=== PATIENT | female | born 1940 | race Caucasian/White ===

== ENCOUNTER → 2016-10-02 | Outpatient (CLI) | payer OTHER | LOC: BRMIMAGING 13:07 | DX: Z12.31 Encounter for screening mammogram for malignant neoplasm of breast (principal) | CPT/HCPCS: G0202 ==

== ENCOUNTER → 2016-12-20 | Outpatient (CLI) | payer OTHER | LOC: BHCLAF 10:45 | PROVIDERS: ATTEND Internal Medicine | DX: I35.0 Nonrheumatic aortic (valve) stenosis (principal) | CPT/HCPCS: 93306-PO ==

== ENCOUNTER 2017-01-13 09:17 | Day surgery (SDC) | payer OTHER ==
[2017-01-13] MEDS ORDERED: DIAZEPAM 5 MG TAB PO ONE (09:22)
[2017-01-13] MEDS ORDERED: ASPIRIN EC 325 MG TAB PO ONE ×2 (09:22→09:41)
[2017-01-13] MEDS ORDERED: NS 1,000 ML IV ONE (09:22)
[2017-01-13] MEDS ORDERED: diphenhydrAMINE 25 MG CAP PO ONE ×2 (09:22→09:41)
[2017-01-13] MEDS ORDERED: FAMOTIDINE 20 MG TAB PO ONE (09:22)
--- NOTE | 2017-01-13 09:39 | CPEKG ---
Heart Rate: 56 RR Interval: 1071 P-R Interval: 124 QRSD Interval: 100 QT Interval: 448 QTC Interval: 433 P [place]: 13 QRS [place]: -20 T Wave [place]: 42 EKG Severity - BORDERLINE ECG - EKG Impression: SINUS RHYTHM EKG Impression: BORDERLINE LEFT AXIS DEVIATION EKG Impression: BORDERLINE T WAVE ABNORMALITIES Electronically Signed By: Kwadwo Cast 13-Jan-2017 17:39:56
[2017-01-13] MEDS ORDERED: FAMOTIDINE 20 MG TAB ONE (09:41)
[2017-01-13] MEDS ORDERED: DIAZEPAM 5 MG TAB ONE (09:42)
[2017-01-13 10:02] LABS: % IMMATURE GRANULYOCYTES 0.2 % (0.0-1.1); ABSOLUTE IMMATURE GRANULOCYTES 0.01 10^3/uL (0.00-0.10); ADD DIFF? NO; ADD MORPH? NO; ADD SCAN? NO; ATYPICAL LYMPHOCYTE FLAG 30 (0-99); FRAGMENT RBC FLAG 0 (0-99); HEMATOCRIT 42.3 % (38.0-47.0); HEMOGLOBIN 14.2 g/dL (12.6-16.3); LEFT SHIFT FLG 0 (0-99); LIPEMIA HEMOLYSIS FLAG 80 (0-99); MEAN CELL HEMOGLOBIN CONCENTR. 33.6 g/dL (32.4-36.7); MEAN CELL VOLUME 92.4 fL (81.5-99.8); MEAN PLATELET VOLUME 10.3 fL (8.7-11.7); PLATELET CLUMPS FLAG 0 (0-99); PLATELET COUNT 179 10^3/uL (150-400); RED BLOOD CELL COUNT 4.58 10^6/uL (4.18-5.33); RED CELL DISTRIBUTION WIDTH 13.8 % (11.5-15.2)
[2017-01-13 10:11] LABS: INR 1.02 (0.83-1.16); PROTIME(PATIENT) 13.3 SEC (12.0-15.0)
[2017-01-13] MEDS ORDERED: fentaNYL 100 MCG/2 ML INJ ONE (10:22)
[2017-01-13] MEDS ORDERED: LIDOCAINE 1% 300 MG/30 ML SDV ONE (10:22)
[2017-01-13] MEDS ORDERED: MIDAZOLAM 2 MG/2 ML VIAL ONE (10:23)
[2017-01-13] MEDS ORDERED: IOPAMIDOL (ISOVUE-370) 150 ML BTL IV ONE ×2 (10:23→11:07)
[2017-01-13 10:26] LABS: ANION GAP 9 mEq/L (8-16); CALCIUM 9.8 mg/dL (8.5-10.4); CARBON DIOXIDE 28 mEq/l (22-31); CHLORIDE 102 mEq/L (97-110); CHOLESTEROL 200 mg/dL (140-220); CHOLESTEROL/HDL RATIO 2.08 RATIO (1.00-4.44); CREATININE 0.8 mg/dL (0.6-1.0); GLOMERULAR FILTRATION RATE > 60; GLUCOSE 81 mg/dL (70-100); HIGH DENSITY LIPOPROTEIN 96 mg/dL (40-85); LDL/HDL RATIO 0.93 RATIO (1.00-3.22); LOW DENSITY LIPOPROTEIN 89 mg/dL (80-100); MAGNESIUM 2.1 mg/dL (1.6-2.3); NON-HIGH DENSITY LIPOPROTEIN 104 mg/dL (90-129); POTASSIUM 4.5 mEq/L (3.5-5.2); SODIUM 139 mEq/L (134-144); TRIGLYCERIDE 79 mg/dL (35-135); VERY LOW DENSITY LIPOPROTEINS 15 mg/dL (8-25)
--- NOTE | 2017-01-13 12:08 | CPIP ---
[f rep st] INVASIVE CARDIAC PROCEDURE DATE OF PROCEDURE: 01/13/2017 PROCEDURE: Coronary angiography. INDICATION: Preoperative evaluation prior to AVR. ACCESS: Patient was prepped and draped in sterile fashion. 1% lidocaine was used to anesthetize th e right inguinal region. A 6-[place] introducer sheath was placed selectively into the right common femoral artery via modified Seldinger technique. CORONARY ANGIOGRAPHY: A 6-[place] JL5 was advanced to the left main coronary artery, and images obta ined. The left main coronary artery trifurcated into an LAD, ramus and circumflex coronary arteries . The left main coronary artery appeared normal. The left anterior descending coronary artery had mild luminal irregularities in the midsection. There was no stenosis greater than 10%. The ramus c oronary artery was a large vessel. The ramus coronary artery appeared normal. The circumflex coron rene artery was codominant. The circumflex coronary artery appeared normal. The first OM artery was a large dominant branch. The first OM artery had mild luminal irregularities approaching 20%. A 6 -[place] Db right catheter was advanced to the right coronary artery, and images obtained. The right coronary artery was codominant. The right coronary artery appeared normal. LEFT VENTRICULOGRAPHY: Left ventriculography was not performed. This patient has known severe aort ic stenosis. COMPLICATIONS: None. CONCLUSIONS: Mild coronary artery disease without flow limitation. /[id number]/MODL
== END 2017-01-13 15:33 | disposition home or self-care (01) ==
LOC: FCATH 09:17
PROVIDERS: ATTEND Internal Medicine Cardiovascular Disease
PROC: B2111ZZ Fluoroscopy of Multiple Coronary Arteries using Low Osmolar Contrast (ICD-10-PCS; principal; 2017-01-13)
DX: Z01.818 Encounter for other preprocedural examination (principal); I35.0 Nonrheumatic aortic (valve) stenosis; I25.10 Atherosclerotic heart disease of native coronary artery without angina pectoris; I47.1 Supraventricular tachycardia; J45.909 Unspecified asthma, uncomplicated; K21.9 Gastro-esophageal reflux disease without esophagitis; Z82.49 Family history of ischemic heart disease and other diseases of the circulatory system
CPT/HCPCS: C1760; J1644; J2250; J3010; Q9967

== ENCOUNTER → 2017-01-16 | Outpatient (CLI) | payer OTHER ==
[~2017-01-16] MED LIST: IOPAMIDOL (ISOVUE 370) 100 ML BTL IV ONE
== END ==
LOC: CIMAGING 11:05
PROVIDERS: ATTEND Internal Medicine Cardiovascular Disease
DX: I71.2 Thoracic aortic aneurysm, without rupture (principal); R00.2 Palpitations; I35.0 Nonrheumatic aortic (valve) stenosis
CPT/HCPCS: 71275; Q9967

== ENCOUNTER → 2017-01-24 | Outpatient (CLI) | payer OTHER | LOC: FIMAGING 12:18 | PROVIDERS: ATTEND Thoracic Surgery (Cardiothoracic Vascular Surgery) | DX: Z01.818 Encounter for other preprocedural examination (principal); I35.0 Nonrheumatic aortic (valve) stenosis; I71.2 Thoracic aortic aneurysm, without rupture ==

== ENCOUNTER → 2017-01-24 | Outpatient (CLI) | payer OTHER | LOC: BHFA 11:30 | PROVIDERS: ATTEND Internal Medicine Cardiovascular Disease | DX: Z01.810 Encounter for preprocedural cardiovascular examination (principal) ==

== ENCOUNTER 2017-01-27 05:49 | Inpatient (IN) | payer OTHER ==
[2017-01-27] MEDS ORDERED: MANNITOL 25% 12.5 GM/50 ML VIAL IV ONE (06:00)
[2017-01-27] MEDS ORDERED: ceFAZolin 2 GM/DEXTROSE 100 ML IV ONE ×2 (06:00)
[2017-01-27] MEDS ORDERED: SODIUM BICARBONATE 20 MEQ, LIDOCAINE 1% 10 ML in NORMOSOL-R 1,000 ML MISC ONE (06:00)
[2017-01-27] MEDS ORDERED: INSULIN REGULAR HUMAN 100 UNIT in NS 100 ML IV ONE (06:00)
[2017-01-27] MEDS ORDERED: NOREPINEPHRINE BITARTRATE 16 MG in NS 250 ML IV ONE (06:00)
[2017-01-27] MEDS ORDERED: LIDOCAINE 1% 5 ML SDV ID PRN ×2 (06:00)
[2017-01-27] MEDS ORDERED: niCARdipine/NACL 200 ML IV ONE (06:00)
[2017-01-27] MEDS ORDERED: AMINOCAPROIC ACID 5 GM/20 ML VIAL IV ONE ×2 (06:00)
[2017-01-27] MEDS ORDERED: PHENYLEPHRINE HCL 50 MG in NS 250 ML IV ONE (06:00)
[2017-01-27] MEDS ORDERED: CITRATE DEXTROSE SOLN 500 ML BAG MISC ONE ×2 (06:00)
[2017-01-27] MEDS ORDERED: LIDOCAINE 1% 2 ML INJ ID PRN (06:23)
[2017-01-27] MEDS ORDERED: LR 1,000 ML IV ONE (06:23)
[2017-01-27] MEDS ORDERED: PROTAMINE SULFATE 50 MG/5 ML VIAL IVP ONE (06:33)
[2017-01-27] MEDS ORDERED: ALBUMIN 5% 250 ML BOTTLE IV ONE ×2 (06:33→10:32)
[2017-01-27] MEDS ORDERED: AMINOCAPROIC ACID 5 GM/20 ML VIAL ONE (06:34)
[2017-01-27] MEDS ORDERED: CITRATE DEXTROSE SOLN 500 ML BAG ONE (06:34)
[2017-01-27] MEDS ORDERED: CALCIUM CHLORIDE 1 GM/10 ML INJ ONE (06:34)
[2017-01-27] MEDS ORDERED: niCARdipine/NACL/200 ML BAG IV ONE (06:34)
[2017-01-27] MEDS ORDERED: NA BICARBONATE 50 MEQ/50 ML VIAL ONE (06:34)
[2017-01-27] MEDS ORDERED: DOPamine/DEXTROSE/250 ML BAG IV ONE (06:34)
[2017-01-27] MEDS ORDERED: LIDOCAINE 2% 100 MG/5 ML SYR ONE (06:34)
[2017-01-27] MEDS ORDERED: MILRINONE/DEXTROSE/100 ML BAG IV ONE (06:34)
[2017-01-27] MEDS ORDERED: POTASSIUM Cl (KCl) 20 MEQ/50 ML BAG IV ONE (06:34)
[2017-01-27] MEDS ORDERED: HEPARIN 10,000 UNIT/10 ML MDV ONE (06:35)
[2017-01-27] MEDS ORDERED: ceFAZolin 1 GM VIAL ONE (06:35)
[2017-01-27] MEDS ORDERED: AMIODARONE HCL 150 MG/3 ML VIAL ONE (06:35)
[2017-01-27] MEDS ORDERED: ADENOSINE 6 MG/2 ML VIAL ONE (06:35)
[2017-01-27] MEDS ORDERED: methylPREDNISolone SOD SUCC 1 GM/8 ML VIAL ONE (06:35)
[2017-01-27] MEDS ORDERED: MAGNESIUM SULFATE 1 GM/2 ML VIAL ONE (06:35)
[2017-01-27] MEDS: MUPIROCIN 2% 22 GM OINT NS SCH ×3 (06:58→21:50)
--- NOTE | 2017-01-27 06:58 | PDHPUP ---
History & Physical Update H&P update statement: This history and physical update is based on an assessment of the patient which was completed after admission or registration (within 24 hours), but prior to the surgery/procedure. H&P changes: Interim testing: Carotid US mild plaquing, no hemodynamically significant stenosis, antegrade vertebral flow. Labwork: Hct 42, Na 139, K 4.5 , Cr 0.8, A1c 5.7%. O+, neg antibody screen
[2017-01-27] MEDS ORDERED: MIDAZOLAM 2 MG/2 ML VIAL ONE (07:02)
[2017-01-27] MEDS ORDERED: MIDAZOLAM 2 MG/2 ML VIAL IVP ONE (07:04)
[2017-01-27] MEDS ORDERED: fentaNYL 100 MCG/2 ML INJ ONE ×4 (07:07)
[2017-01-27] MEDS ORDERED: PROPOFOL 200 MG/20 ML VIAL ONE ×2 (07:07→09:36)
[2017-01-27] MEDS ORDERED: LIDOCAINE 2% 5 ML SDV ONE (07:07)
[2017-01-27] MEDS ORDERED: ROCURONIUM 100 MG/10 ML VIAL ONE (07:07)
[2017-01-27] MEDS ORDERED: PHENYLEPHRINE 10 MG/ML SDV ONE (07:10)
--- NOTE | 2017-01-27 08:35 | PDANEPAE ---
ANE History of Present Illness critical as ANE Past Medical History - Cardiovascular History Hx Hypertension: No Hx Arrhythmias: No Hx Chest Pain: No Hx Coronary Artery / Peripheral Vascular Disease: No Hx CHF / Valvular Disease: Yes Hx Palpitations: No Cardiovascular History Comment: Aortic stenois, aortic aneurysm 4.5 cm. Exertional SOB, chest heaviness. - Pulmonary History Hx COPD: No Hx Asthma/Reactive Airway Disease: Yes Hx Recent Upper Respiratory Infection: No Hx Oxygen in Use at Home: No Hx Sleep Apnea: No Sleep Apnea Screening Result - Last Documented: Negative Pulmonary History Comment: pt states h/o asthma - has not bothered her in recent years - Neurologic History Hx Cerebrovascular Accident: No Hx Seizures: No Hx Dementia: No - Endocrine History Hx Diabetes: No - Renal History Hx Renal Disorders: No - Liver History Hx Hepatic Disorders: No - Neurological & Psychiatric Hx Hx Neurological and Psychiatric Disorders: No - Cancer History Hx Cancer: No - Congenital Disorder History Hx Congenital Disorders: No - GI History Hx Gastrointestinal Disorders: No - Other Health History Other Health History: "skin torn" R arm - Chronic Pain History Chronic Pain: No - Surgical History Prior Surgeries: ablation for SVT 2015. Bilat bunionectomy. bilat carpal tunnel sx. hysterectomy 1982. thyroidectomy. appy 1948. tonsillectomy 1948 ANE Review of Systems - Exercise capacity METS (RN): 4 METS ANE Patient History - Allergies Allergies/Adverse Reactions: cheese Allergy (Verified 01/24/17 15:23) Other-Enter Comments cocoa [chocolate] Allergy (Verified 01/24/17 15:23) Other-Enter Comments peanut Allergy (Verified 01/24/17 15:23) Other-Enter Comments - Home Medications Home Medications: Ascorbic Acid [Vitamin C 500 mg (*)] 500 mg PO BID 04/19/15 [Last Taken 01/20/17 ] Calcium/Magnesium/Vit D3 [Calcium 500 mg Tablet] 1 each PO DAILY 04/19/15 [Last Taken 01/20/17] Glucosamine HCl/Chondr Oliver A Na [Osteo Bi-Flex Caplet] 1 each PO DAILY 04/19/15 [ Last Taken 01/20/17] [place]-3 Fatty Acids [Fish Oil 1000 mg (*)] 1,000 mg PO DAILY 04/19/15 [Last Taken 01/20/17] B Complex 1 tab PO DAILY 01/13/17 [Last Taken 01/20/17] Fosamax 70 MG (*) 70 mg PO QS 01/13/17 [Last Taken 01/25/17] Multiple Vitamin 01/13/17 [Last Taken 01/20/17] Aspirin 81mg (*) 01/24/17 [Last Taken 01/20/17] - NPO status NPO Since - Liquids (Date): 01/26/17 NPO Since - Liquids (Time): 21:00 NPO Since - Solids (Date): 01/26/17 NPO Since - Solids (Time): 12:00 - Anes Hx Anes Hx: no prior problems - Smoking Hx Smoking Status: Never smoked ANE Labs/Vital Signs - Vital Signs Blood Pressure: 155/83 Heart Rate: 61 Respiratory Rate: 16 O2 Sat (%): 97 Height: 167.64 cm Weight: 49.895 kg ANE Physical Exam - Airway Mallampati Score: Class 2 Mouth exam: normal dental/mouth exam - Pulmonary Pulmonary: no respiratory distress - Cardiovascular Cardiovascular: regular rate and rhythym - ASA Status ASA Status: III ANE Anesthesia Plan Anesthesia Plan: general endotracheal anesthesia Lines/Monitors: arterial line, central line, TRACI
[2017-01-27] MEDS ORDERED: SUGAMMADEX SODIUM 200 MG/2 ML VIAL IVP ONE (09:53)
--- NOTE | 2017-01-27 10:18 | POSTOPPROG ---
Post Op Note Date of Operation: 01/27/17 Surgeon: Llye Salmeron Caster Operator: Mele Anesthesiologist: Khai Anesthesia: GET(General Endotracheal) Pre-op Diagnosis: , Asc aneurysm Procedure: AVR #21 Magna, replace asc #24 graft Inf/Abcess present in the surg proc area at time of surgery?: No EBL: 50-100 Drains: Other (2 blakes)
[2017-01-27] MEDS ORDERED: MAGNESIUM HYDROXIDE 30 ML UDCUP PO PRN (10:29)
[2017-01-27] MEDS ORDERED: fentaNYL 100 MCG/2 ML INJ IVP PRN ×2 (10:29→10:37)
[2017-01-27] MEDS ORDERED: POLYETHYLENE GLYCOL 3350 17 GM PKT PO PRN (10:29)
[2017-01-27] MEDS ORDERED: BISACODYL 10 MG SUPP PR PRN (10:29)
[2017-01-27] MEDS ORDERED: D50W 25 GM/50 ML SYR IVP PRN (10:29)
[2017-01-27] MEDS ORDERED: LACTULOSE 20 GM/30 ML UDCUP PO PRN (10:29)
[2017-01-27] MEDS ORDERED: ONDANSETRON DISINTEGRATING 4 MG TAB PO PRN (10:29)
[2017-01-27] MEDS ORDERED: ALBUMIN 5% 250 ML IV PRN (10:29)
[2017-01-27] MEDS ORDERED: PANTOPRAZOLE SODIUM 40 MG in NS 100 ML IV ONE (10:29)
[2017-01-27] MEDS ORDERED: MEPERIDINE 25 MG/ML SYR IVP PRN ×2 (10:29→10:37)
[2017-01-27] MEDS ORDERED: HYDROCODONE/APAP 5/325 TAB PO PRN (10:29)
[2017-01-27] MEDS ORDERED: SODIUM CL NASAL 45 ML BTL EACHNARE PRN (10:29)
[2017-01-27] MEDS ORDERED: MAGNESIUM SULF 2 GM/WATER 50 ML IV ONE (10:29)
[2017-01-27] MEDS ORDERED: ACETAMINOPHEN 325 MG TAB PO PRN (10:29)
[2017-01-27] MEDS ORDERED: CEPACOL LOZENGE PO PRN (10:29)
[2017-01-27] MEDS ORDERED: ACETAMINOPHEN 650 MG SUPP PR PRN (10:29)
[2017-01-27] MEDS ORDERED: NS 1,000 ML IV SCH ×2 (10:30→20:00)
[2017-01-27] MEDS ORDERED: INSULIN REGULAR HUMAN 100 UNIT in NS 100 ML IV SCH (10:30)
[2017-01-27] MEDS ORDERED: HYDROmorphONE/DILAUDID 1 MG/ML SYR IVP PRN ×2 (10:37)
[2017-01-27] MEDS ORDERED: NALOXONE HCL 0.4 MG/ML INJ IVP PRN (10:37)
--- NOTE | 2017-01-27 10:37 | POSTANESTH ---
Post Anesthetic Evaluation Cardiovascular Status: Normal, Stable Respiratory Status: Normal, Stable Level of Consciousness/Mental Status: Moderately Sleepy Pain Control: Adequate, Prn Tx Ordered Nausea/Vomiting Control: Adequate, Prn Tx Ordered Complications Possibly Related to Anesthesia: None Noted
--- NOTE | 2017-01-27 11:19 | GOP ---
[f rep st] OPERATIVE REPORT DATE OF OPERATION: 01/27/2017 SURGEON: Lyle Salmeron DO NEPHROLOGY NURSE: Melody Shabazz. ANESTHESIA: Robert Ridley. PREOPERATIVE DIAGNOSIS: Severe aortic stenosis, aortic insufficiency with ascending aortic aneurysm. POSTOPERATIVE DIAGNOSIS: Severe aortic stenosis, aortic insufficiency with ascending aortic aneurysm. PROCEDURE PERFORMED: AVR #21 Magna, resect asc aorta #24 graft, Atriclip ARVIN FINDINGS: Patient was noted to have critical aortic stenosis, symptomatic with an incidental finding of a 4.5 to 5 cm ascending aortic aneurysm which was quite thin-walled. DESCRIPTION OF PROCEDURE: She was consented for surgery, brought to the operating room, intubated, monitoring lines were placed. She was prepped and draped in sterile classical manner. Timeout was confirmed with the team. Sternotomy was performed. Pericardium was opened. The patient was heparinized. She was cannulated in the transverse arch and right atrium. Cardiopulmonary bypass was begun. The aorta was crossclamped at the at the base of the innominate artery which was quite thin-walled, with initially antegrade and subsequently retrograde and direct coronary artery cardioplegia administered every 10 minutes. Topical hypothermia and systemic cooling were also utilized. We initially ligated a small left atrial appendage which was free of thrombus with an AtriClip and then proceeded with excising the aneurysm from the sinotubular junction up to the base of the innominate artery where the cross-clamp was. The sinuses were mildly dilated but not significantly so. At her age, I felt it was best to avoid doing a total root. There was no significant calcification in the aortic wall; however, it was extremely thin walled. 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 It was excised. The anulus was debrided. CO2 was infused and the LV chamber was irrigated for any debris. We then proceeded with placing a 21 Magna bioprosthesis in the supra-annular position with interrupted 2-0 Tycron pledgeted mattress sutures secured with Cor-Knots. We then sized the patient for a 24 graft which was sutured distally with continuous running 3-0 Prolene suture reinforced in several sites and with bio glue applied. We then performed the same proximal anastomosis in a similar fashion. We then removed the cross-clamp, put the patient in deep Trendelenburg with the LV sump and aortic vent on, and then intermittently aspirated through the LV apex until contractility was restored and no air was identified. The patient was then easily weaned from bypass. Heparin was reversed with protamine. The cannula was removed and oversewn. Two ventricular pacing wires were placed. The thymic fat and pericardium were closed over 1 mediastinal and 1 right pleural tube. The chest was closed in standard fashion. Patient was returned to ICU in stable condition. OPERATION PERFORMED: 1. Aortic valve replacement with #21 Magna bioprosthesis. 2. Replace ascending aorta with a #24 Hemashield graft. 3. AtriClip to the left atrial appendage. /[id number]/MODL MTDD
[2017-01-27] MEDS: KETOROLAC 15 MG/1 ML SDV IVP SCH ×3 (11:37→23:51)
[2017-01-27] MEDS ORDERED: fentaNYL 25 MCG PATCH TD ONE (11:45)
--- NOTE | 2017-01-27 11:58 | CPEKG ---
Heart Rate: 71 RR Interval: 845 P-R Interval: 160 QRSD Interval: 106 QT Interval: 436 QTC Interval: 474 P [place]: 80 QRS [place]: 58 T Wave [place]: 66 EKG Severity - NORMAL ECG - EKG Impression: SINUS RHYTHM EKG Impression: NON SPECIFIC LATERAL ST/T WAVE CHANGES Electronically Signed By: Virgilio Nova 28-Jan-2017 12:04:32
[2017-01-27 12:37] LABS: CALCULATED OXYGEN SATURATION 96 % (92-95); O2 CONCENTRATIION 8 % (0-100)
[2017-01-27 12:37] LABS: CALCULATED OXYGEN SATURATION 99 % (92-95)
[2017-01-27] MEDS: ONDANSETRON 4 MG/2 ML VIAL IVP PRN ×3 (13:10→16:56)
[2017-01-27] MEDS: POTASSIUM Cl (KCl) 50 ML IV PRN ×2 (13:13→16:49)
[2017-01-27] MEDS: METOCLOPRAMIDE 10 MG/2 ML VIAL IVP PRN (13:52)
[2017-01-27] MEDS: ceFAZolin 2 GM/DEXTROSE 100 ML IV SCH ×2 (14:30→21:53)
[2017-01-27] MEDS ORDERED: SODIUM BICARBONATE 50 MEQ/50 ML SYR ONE (15:19)
[2017-01-27] MEDS ORDERED: SODIUM BICARBONATE 50 MEQ/50 ML SYR IV ONE (15:45)
[2017-01-27] MEDS ORDERED: NOREPINEPHRINE BITARTRATE 16 MG in NS 250 ML IV SCH (16:00)
[2017-01-27 16:21] LABS: CALCULATED OXYGEN SATURATION 99 % (92-95)
[2017-01-27] MEDS ORDERED: NS 1,000 ML IV ONE (16:30)
[2017-01-27 20:38] LABS: HEMATOCRIT 32.9 % (38.0-47.0); MEAN CELL HEMOGLOBIN 31.2 pg (27.9-34.1); MEAN CELL HEMOGLOBIN CONCENTR. 33.4 g/dL (32.4-36.7); MEAN CELL VOLUME 93.2 fL (81.5-99.8); RED BLOOD CELL COUNT 3.53 10^6/uL (4.18-5.33); RED CELL DISTRIBUTION WIDTH 14.1 % (11.5-15.2)
[2017-01-27] MEDS: HEPARIN 5,000 UNIT/0.5 ML SYR SC SCH ×2 (21:53→22:20)
[2017-01-28 04:32] LABS: % IMMATURE GRANULYOCYTES 0.4 % (0.0-1.1); ABSOLUTE IMMATURE GRANULOCYTES 0.06 10^3/uL (0.00-0.10); ADD DIFF? NO; ADD MORPH? NO; ADD SCAN? NO; ATYPICAL LYMPHOCYTE FLAG 0 (0-99); FRAGMENT RBC FLAG 0 (0-99); HEMATOCRIT 32.3 % (38.0-47.0); HEMOGLOBIN 10.9 g/dL (12.6-16.3); LEFT SHIFT FLG 70 (0-99); LIPEMIA HEMOLYSIS FLAG 80 (0-99); MEAN CELL HEMOGLOBIN 31.7 pg (27.9-34.1); MEAN CELL HEMOGLOBIN CONCENTR. 33.7 g/dL (32.4-36.7); MEAN CELL VOLUME 93.9 fL (81.5-99.8); MEAN PLATELET VOLUME 10.7 fL (8.7-11.7); PLATELET CLUMPS FLAG 0 (0-99); PLATELET COUNT 97 10^3/uL (150-400); RED BLOOD CELL COUNT 3.44 10^6/uL (4.18-5.33); RED CELL DISTRIBUTION WIDTH 14.5 % (11.5-15.2)
[2017-01-28 05:02] LABS: ANION GAP 7 mEq/L (8-16); CALCIUM 7.2 mg/dL (8.5-10.4); CARBON DIOXIDE 25 mEq/l (22-31); CHLORIDE 117 mEq/L (97-110); CREATININE 0.7 mg/dL (0.6-1.0); GLOMERULAR FILTRATION RATE > 60; GLUCOSE 93 mg/dL (70-100); POTASSIUM 4.7 mEq/L (3.5-5.2); SODIUM 149 mEq/L (134-144)
[2017-01-28] MEDS: KETOROLAC 15 MG/1 ML SDV IVP SCH ×4 (05:41→23:26)
[2017-01-28] MEDS: ceFAZolin 2 GM/DEXTROSE 100 ML IV SCH ×3 (05:42→21:26)
[2017-01-28] MEDS: HEPARIN 5,000 UNIT/0.5 ML SYR SC SCH ×3 (06:43→21:26)
[2017-01-28] MEDS: ONDANSETRON 4 MG/2 ML VIAL IVP PRN (06:45)
[2017-01-28] MEDS: METOCLOPRAMIDE 10 MG/2 ML VIAL IVP PRN (06:45)
--- NOTE | 2017-01-28 08:03 | SOAPPROG ---
SOAP Progress Note Assessment/Plan: Assessment: POD#1 AVR 21mm magna bioprosthesis, Asc Ao Repl 22 mm hemashield interposition graft, prophylactic AtriClip ligation ARVIN Sx severe /AI w dilated asc ao - s/p tissue AVR and asc ao replacement. Extubated in the OR. Hemodynamically stable early postop course without prolonged vasoactive support or external pacing. Modest volume overload. AF prophylaxis with BB as tolerated. Antithrombotic prophylaxis with ASA alone pending stability of rhythm. Acute expected blood loss anemia - Stable. No need for blood or blood products. Care with VTE prophylaxis while plt count depressed. Plan: Routine POD#1 orders re lines, drains, orals and mobility. Cont multimodal analgesia w Toradol x 1 more day. Crystalloid bolus for CVP < 8. Start metoprolol 12.5 mg BID tonight. Tx to PCU. 01/28/17 08:00 Subjective: Doing ok. Improved pain control w duragesic patch and toradol. Sips/chips without nausea. Short walk outside of room without dizziness. Objective: Vital Signs Temp Pulse Resp BP Pulse Ox 37.4 C 76 17 118/58 L 98 01/28/17 04:00 01/28/17 06:00 01/28/17 06:00 01/28/17 06:00 01/28/17 06:00 Laboratory Results 01/28/17 04:20 01/28/17 04:20 01/27/17 01/28/17 01/29/17 05:59 05:59 05:59 Intake Total 2657.8 Output Total 1990 Balance 667.8 Holding SR < 90 with occ PVC and a couple short bursts of NSVT. No backup pacing. Brief low dose levo for SBP support, off by yest pm. MAPs > 70 overnoc. Slightly positive fluid balance. No sig CTOP. CXR -> no PTX, no pulm vasc congestion, rt pl space well drained, minimal left basilar atelectasis. Downward trending CVP with labs sugg intravasc dry. Physical Exam - Physical Exam General Appearance: alert, no apparent distress Respiratory: crackles (bases), other (blakes x 2 y-d to pleurovac, thin serosang drainage, small tidal, no air leak) Cardiac/Chest: regular rate, rhythm, other (Sternum grossly stable. Sternotomy CDI.) Abdomen: normal bowel sounds, non-tender, soft Skin: warm/dry Extremities: swelling (trace) ICD10 Worksheet Patient Problems: Problems Problem Status Onset Acute blood loss anemia Acute S/P aortic valve replacement with bioprosthetic valve Acute ~01/27/17 S/P ascending aortic replacement Acute ~01/27/17 Aortic valve stenosis with insufficiency Chronic Ascending aorta dilatation Chronic
[2017-01-28] MEDS ORDERED: NS 500 ML IV ONE (08:55)
[2017-01-28] MEDS ORDERED: ASPIRIN 81 MG CHEWABLE TAB PO SCH (09:00)
[2017-01-28] MEDS ORDERED: traMADol 50 MG TAB PO PRN (09:00)
[2017-01-28] MEDS: PANTOPRAZOLE SODIUM 40 MG TAB PO SCH (10:06)
[2017-01-28] MEDS: VITAMIN B COMPLEX 1 EA CAP/TAB PO SCH (10:06)
[2017-01-28] MEDS: ASPIRIN 81 MG CHEWABLE TAB PO SCH (10:06)
[2017-01-28] MEDS: MUPIROCIN 2% 22 GM OINT NS SCH ×2 (10:06→20:39)
[2017-01-28] MEDS: SENNOSIDES/DOCUSATE SODIUM TAB PO SCH (20:36)
[2017-01-28] MEDS: METOPROLOL TARTRATE 25 MG TAB PO SCH (20:36)
[2017-01-29] MEDS: KETOROLAC 15 MG/1 ML SDV IVP SCH (05:48)
[2017-01-29] MEDS: HEPARIN 5,000 UNIT/0.5 ML SYR SC SCH ×2 (05:49→12:28)
[2017-01-29 06:02] LABS: % IMMATURE GRANULYOCYTES 0.7 % (0.0-1.1); ADD DIFF? NO; ADD MORPH? NO; ADD SCAN? NO; ATYPICAL LYMPHOCYTE FLAG 0 (0-99); FRAGMENT RBC FLAG 0 (0-99); HEMATOCRIT 30.9 % (38.0-47.0); HEMOGLOBIN 10.1 g/dL (12.6-16.3); LEFT SHIFT FLG 30 (0-99); LIPEMIA HEMOLYSIS FLAG 80 (0-99); MEAN CELL HEMOGLOBIN 31.1 pg (27.9-34.1); MEAN CELL HEMOGLOBIN CONCENTR. 32.7 g/dL (32.4-36.7); MEAN CELL VOLUME 95.1 fL (81.5-99.8); MEAN PLATELET VOLUME 11.4 fL (8.7-11.7); PLATELET CLUMPS FLAG 10 (0-99); PLATELET COUNT 81 10^3/uL (150-400); RED BLOOD CELL COUNT 3.25 10^6/uL (4.18-5.33); RED CELL DISTRIBUTION WIDTH 14.6 % (11.5-15.2)
[2017-01-29 06:41] LABS: ANION GAP 4 mEq/L (8-16); CALCIUM 7.6 mg/dL (8.5-10.4); CARBON DIOXIDE 28 mEq/l (22-31); CHLORIDE 109 mEq/L (97-110); CREATININE 0.7 mg/dL (0.6-1.0); GLOMERULAR FILTRATION RATE > 60; GLUCOSE 114 mg/dL (70-100); POTASSIUM 4.8 mEq/L (3.5-5.2); SODIUM 141 mEq/L (134-144)
--- NOTE | 2017-01-29 07:57 | SOAPPROG ---
SOAP Progress Note Assessment/Plan: POD#2 AVR 21mm magna bioprosthesis, Asc Ao Repl 22 mm hemashield interposition graft, prophylactic AtriClip ligation ARVIN Sx severe /AI w dilated asc ao - s/p tissue AVR and asc ao replacement. Extubated in the OR. Hemodynamically stable early postop course without prolonged vasoactive support or external pacing. Modest volume overload. AF prophylaxis with BB as tolerated. Antithrombotic prophylaxis with ASA alone pending stability of rhythm. Acute expected blood loss anemia - Stable. No need for blood or blood products. Care with VTE prophylaxis while plt count depressed. Subjective: Denies CP/SOB. Hands are a little swollen. Has walked multiple times. Objective: Vital Signs Temp Pulse Resp BP Pulse Ox 37.2 C 86 16 101/58 L 99 01/29/17 07:26 01/29/17 07:26 01/29/17 07:26 01/29/17 07:26 01/29/17 07:26 Laboratory Results 01/29/17 05:50 01/29/17 05:50 01/28/17 01/29/17 01/30/17 05:59 05:59 05:59 Intake Total 2657.8 415 Output Total 1990 870 Balance 667.8 -455 Physical Exam - Physical Exam General Appearance: WD/WN, alert, no apparent distress EENT: No scleral icterus (R), No scleral icterus (L) Neck: normal inspection Respiratory: No respiratory distress Cardiac/Chest: regular rate, rhythm Abdomen: non-tender, soft, No distended Skin: normal color, warm/dry Extremities: No pedal edema Neuro/Psych: no motor/sensory deficits, alert, normal mood/affect, oriented x 3 ICD10 Worksheet Patient Problems: Problems Problem Status Onset Acute blood loss anemia Acute S/P aortic valve replacement with bioprosthetic valve Acute ~01/27/17 S/P ascending aortic replacement Acute ~01/27/17 Aortic valve stenosis with insufficiency Chronic Ascending aorta dilatation Chronic
[2017-01-29] MEDS: ASPIRIN 81 MG CHEWABLE TAB PO SCH (07:58)
[2017-01-29] MEDS: PANTOPRAZOLE SODIUM 40 MG TAB PO SCH (07:58)
[2017-01-29] MEDS: SENNOSIDES/DOCUSATE SODIUM TAB PO SCH ×2 (07:58→20:26)
[2017-01-29] MEDS: VITAMIN B COMPLEX 1 EA CAP/TAB PO SCH (07:58)
[2017-01-29] MEDS: ASCORBIC ACID 500 MG TAB PO SCH ×2 (07:58→20:27)
[2017-01-29] MEDS: MULTIVITAMINS 1 EACH TAB PO SCH (07:58)
[2017-01-29] MEDS: METOPROLOL TARTRATE 25 MG TAB PO SCH (08:04)
[2017-01-29] MEDS ORDERED: VITAMIN B COMPLEX 1 EA CAP/TAB PO SCH (09:00)
[2017-01-29] MEDS: MUPIROCIN 2% 22 GM OINT NS SCH (11:08)
[2017-01-29] MEDS ORDERED: AMIODARONE HCL 200 ML IV ONE (15:43)
[2017-01-29] MEDS ORDERED: AMIODARONE HCL 100 ML IV ONE (18:07)
[2017-01-29] MEDS ORDERED: METOPROLOL TARTRATE 25 MG TAB PO SCH (21:00)
[2017-01-29] MEDS ORDERED: AMIODARONE HCL 540 MG in D5W 300 ML IV ONE (22:00)
[2017-01-30 06:24] LABS: ANION GAP 7 mEq/L (8-16); CALCIUM 8.5 mg/dL (8.5-10.4); CARBON DIOXIDE 27 mEq/l (22-31); CHLORIDE 103 mEq/L (97-110); CREATININE 0.6 mg/dL (0.6-1.0); GLOMERULAR FILTRATION RATE > 60; GLUCOSE 124 mg/dL (70-100); POTASSIUM 4.5 mEq/L (3.5-5.2); SODIUM 137 mEq/L (134-144)
--- NOTE | 2017-01-30 07:22 | SOAPPROG ---
SOAP Progress Note Assessment/Plan: POD#3 AVR 21mm magna bioprosthesis, Asc Ao Repl 22 mm hemashield interposition graft, prophylactic AtriClip ligation ARVIN Sx severe /AI w dilated asc ao - s/p tissue AVR and asc ao replacement. Extubated in the OR. Hemodynamically stable early postop course without prolonged vasoactive support or external pacing. Modest volume overload well- tolerated. Antithrombotic prophylaxis with Eliquis. Final CT to be removed today. PW to remain d/t rhythm issues. Acute expected blood loss anemia - Stable. No need for blood or blood products. Eliquis for DVT prophylaxis. Post-op atrial fibrillation - BB and amiodarone administered with subsequent episodes of pauses/bradycardia where ventricular pacing (VVI 50) was initiated. Metoprolol held and external pacer set to lower rate. Dr. Blevins consulted to evaluate today. Thromboprophylaxis with low-dose Eliquis initiated. Subjective: Denies light-headedness, dizziness, chest palpitations, chest pain, SOB. Objective: Vital Signs Temp Pulse Resp BP Pulse Ox 36.7 C 70 16 102/56 L 97 01/30/17 04:00 01/30/17 04:00 01/30/17 04:00 01/30/17 04:00 01/30/17 04:00 Laboratory Results 01/30/17 05:50 01/30/17 05:50 01/29/17 01/30/17 01/31/17 05:59 05:59 05:59 Intake Total 415 1404 Output Total 870 690 Balance -455 714 Physical Exam - Physical Exam General Appearance: WD/WN, alert, no apparent distress EENT: No scleral icterus (R), No scleral icterus (L) Neck: normal inspection Respiratory: No respiratory distress Cardiac/Chest: bradycardia, irregularly irregular Abdomen: non-tender, soft, No distended Skin: normal color, warm/dry Extremities: No pedal edema Neuro/Psych: no motor/sensory deficits, alert, normal mood/affect, oriented x 3 ICD10 Worksheet Patient Problems: Problems Problem Status Onset Acute blood loss anemia Acute Postoperative atrial fibrillation Acute S/P aortic valve replacement with bioprosthetic valve Acute ~01/27/17 S/P ascending aortic replacement Acute ~01/27/17 Aortic valve stenosis with insufficiency Chronic Ascending aorta dilatation Chronic
[2017-01-30] MEDS: AMIODARONE HCL 200 MG TAB PO SCH (08:36)
[2017-01-30] MEDS: ASCORBIC ACID 500 MG TAB PO SCH ×2 (08:36→20:00)
[2017-01-30] MEDS: SENNOSIDES/DOCUSATE SODIUM TAB PO SCH (08:36)
[2017-01-30] MEDS: VITAMIN B COMPLEX 1 EA CAP/TAB PO SCH (08:36)
[2017-01-30] MEDS: PANTOPRAZOLE SODIUM 40 MG TAB PO SCH (08:36)
[2017-01-30] MEDS: APIXABAN 2.5 MG TAB PO SCH ×2 (08:36→20:00)
[2017-01-30] MEDS: MULTIVITAMINS 1 EACH TAB PO SCH (08:37)
[2017-01-30] MEDS: ASPIRIN 81 MG CHEWABLE TAB PO SCH (08:37)
--- NOTE | 2017-01-30 12:34 | ECHO ---
[id number] + + [address] : : [place] [address] : : [phone] + + Adult Echocardiographic Report + ------+ :Name: PAULA ASCENCIO MStudy Date: 01/30/2017 10:09 AM : : Hospital Admission Number: [id number] [facility] n: 204: :: 1940 Gender: Female Height: 66 in : :Age: 76 yrs Race: WH Weight: 122 lb : :Reason For Study: S/P #21 magna AVR/ascending AO replacement : : BSA: 1.6 meters 2 : + ------+ MMode/2D Measurements \T\ Calculations IVSd: 0.57 cm LVIDd: 3.7 cm FS: 36.6 % Ao root diam: LVPWd: 0.77 cm LVIDs: 2.4 cm EDV(Teich): 3.3 cm 58.7 ml LA dimension: ESV(Teich): 3.2 cm 19.3 ml EF(Teich): 67.2 % LVLd ap4: 6.9 cm SV(MOD-sp4): EDV(MOD-sp4): 35.0 ml 50.0 ml LVLs ap4: 5.4 cm ESV(MOD-sp4): 15.0 ml EF(MOD-sp4): 70.0 % Normal Measurement Values: + + :LVIDd (3.5-5.7cm) IVSd (0.6-1.1cm) LVPWd (0.6-1.1cm) Aortic Root (2.0-3.7cm)Left Atrium (1.5-4.0cm): :LV Vol(d) (76-115ml) LV Vol(s) (29-48ml) Ejec Fraction (50-65%)PV Jayden (0.6- 1.2m/s) TV Jayden (0.4-1.0m/s) : :MV E Jayden (0.8-1.0m/s)MV A Jayden (0.3-1.0m/s)LVOT Jayden (0.7-1.2m/s) Asc Ao Jayden ( 0.9-1.8m/s) : + + Doppler Measurements \T\ Calculations MV E max jayden: 91.8 cm/sec Ao mean P.4 mmHg TR max jayden: 245.7 cm/sec MV A max jayden: 54.8 cm/sec Ao V2 mean: 141.5 cm/sec TR max P.1 mmHg MV E/A: 1.7 Ao V2 VTI: 42.3 cm RAP systole: 10.0 mmHg RVSP(TR): 34.1 mmHg Left Ventricle The left ventricle is normal in size. There is normal left ventricular wall thickness. Left ventricular systolic function is normal. Ejection Fraction = 70-75%. The left ventricular ejection fraction is calculated at 67.2 %. No regional wall motion abnormalities noted. Right Ventricle The right ventricle is normal in size and function. A moderator band is seen in the right ventricle. Atria The left atrium is mildly dilated. The right atrium is mildly dilated. Mitral Valve The mitral valve is normal in structure and function. There is mild mitral regurgitation. Tricuspid Valve Normal tricuspid valve. There is mild tricuspid regurgitation. Right ventricular systolic pressure is normal. Aortic Valve There is a bioprosthetic aortic valve. AV max PG is 19mmHG. AV mean PG is 9mmHG. Pulmonic Valve The pulmonic valve is not well visualized. There is no pulmonic valvular regurgitation. Great Vessels The aortic root is normal size. Pericardium/Pleural There is no pericardial effusion. There is a fat pad seen. Left pleural effusion. Conclusion A complete two-dimensional transthoracic echocardiogram was performed (2D, M-mode, Doppler and color flow Doppler). (1) Left ventricular systolic ejection fraction was normal (70-75%) - normal wall motion (2) No left ventricular hypertrophy (3) Normal diastolic function (4) Normal right ventricular size and function (5) Mild biatrial dilation is noted (6) Mild mitral regurgtiation (7) Bioprosthetic aortic valve with mean gradient of 9 mm Hg (8) Mild tricuspid regurgitation - RVSP was within normal limits (9) Poor visualiation of the pulmonic valve without doppler evidence for insufficiency (10) No pericardial effusion, but there was a small left pleural effusion (11) In comparison to prior echocardiogram from 2014, the aortic valve has been replaced. Final Reading Physician: Vik Diaz signed on 01/30/2017 12:33 PM Ordering Physician: Godwin Watson Performed By: Jennifer Dela Cruz RDCS
[2017-01-30] MEDS ORDERED: POTASSIUM CL 10 MEQ TAB PO ONE (13:00)
[2017-01-30] MEDS ORDERED: FUROSEMIDE 20 MG/2 ML VIAL IVP ONE (13:00)
[2017-01-31] MEDS: SENNOSIDES/DOCUSATE SODIUM TAB PO SCH ×2 (00:17→08:38)
[2017-01-31 06:51] LABS: POTASSIUM 4.3 mEq/L (3.5-5.2)
--- NOTE | 2017-01-31 07:11 | SOAPPROG ---
SOAP Progress Note Assessment/Plan: Assessment: POD#4 AVR 21mm magna bioprosthesis, Asc Ao Repl 22 mm hemashield interposition graft, prophylactic AtriClip ligation ARVIN Sx severe /AI w dilated asc ao - s/p tissue AVR and asc ao replacement. Extubated in the OR. Hemodynamically stable early postop course without prolonged vasoactive support. Modest volume overload. Tubes out. Antithrombotic prophylaxis with ASA and Eliquis. Postoperative PAF - BB and amiodarone administered with subsequent episodes of pauses/bradycardia requiring temporary backup pacing (VVI 50). EP cards consulted. Rec discontinue BB, cont low dose Amio, and initiate thromboprophylaxis with low-dose Eliquis. Subsequent rhythm PAF with CVR and no further javon. Ongoing rhythm monitoring with Holter arranged. Acute expected blood loss anemia with thrombocytopenia - Stable. No need for blood or blood products. Platelet rebound noted. VTE prophylaxis with Eliquis. Plan: Remove Vwire. Cont daily diuresis. Discharge home today on amiodarone if ok w cards. Instructions re diet, meds, activity, wound care and f/u to be reviewed in presence of . 01/31/17 07:11 Subjective: Feels well. No concerns. Ready for home. Objective: Vital Signs Temp Pulse Resp BP Pulse Ox 36.6 C 75 16 144/74 H 99 01/31/17 03:58 01/31/17 03:58 01/31/17 03:58 01/31/17 03:58 01/31/17 03:58 Laboratory Results 01/30/17 05:50 01/31/17 06:20 01/30/17 01/31/17 02/01/17 05:59 05:59 05:59 Intake Total 1404 1900 Output Total 690 1550 Balance 714 350 In and out of AF with rates 70s-80s. No back up pacing since yest morn. Stable sats on RA. Improved fluid balance on lasix. Echo-> nl BiV systolic fx, nl biprosthetic AV fx, mild atrial dilatation, no pericard effusion Physical Exam - Physical Exam General Appearance: alert, no apparent distress Respiratory: lungs clear Cardiac/Chest: irregularly irregular, other (Sternum grossly stable. Sternotomy CDI. Vwires intact.) Abdomen: non-tender, soft Skin: warm/dry Extremities: swelling (trace - 1+ dependent) ICD10 Worksheet Patient Problems: Problems Problem Status Onset Acute blood loss anemia Acute Postoperative atrial fibrillation Acute S/P aortic valve replacement with bioprosthetic valve Acute ~01/27/17 S/P ascending aortic replacement Acute ~01/27/17 Aortic valve stenosis with insufficiency Chronic Ascending aorta dilatation Chronic
[2017-01-31 07:29] VITALS: BP 109/73; PULSE 83; RESP 14; TEMP 98.1; O2SAT 97
[2017-01-31] MEDS: ASCORBIC ACID 500 MG TAB PO SCH (08:37)
[2017-01-31] MEDS: VITAMIN B COMPLEX 1 EA CAP/TAB PO SCH (08:37)
[2017-01-31] MEDS: APIXABAN 2.5 MG TAB PO SCH (08:37)
[2017-01-31] MEDS: AMIODARONE HCL 200 MG TAB PO SCH (08:37)
[2017-01-31] MEDS: MULTIVITAMINS 1 EACH TAB PO SCH (08:37)
[2017-01-31] MEDS: ASPIRIN 81 MG CHEWABLE TAB PO SCH (08:37)
[2017-01-31] MEDS ORDERED: FUROSEMIDE 40 MG TAB PO SCH (09:00)
[2017-01-31] MEDS ORDERED: POTASSIUM CL 10 MEQ TAB PO SCH (09:00)
--- NOTE | 2017-01-31 12:01 | PDDCSUM ---
Discharge Summary Discharge Summary: DATE OF ADMISSION: 01/27/17 DATE OF DISCHARGE: 01/31/17 DISPOSITION: Home, self-care PRINCIPAL ADMISSION DIAGNOSES: 1. Symptomatic severe aortic valve stenosis with moderate insufficiency 2. Aneurysmal ascending aorta PRINCIPAL DISCHARGE DIAGNOSES: 1. Status post aortic valve replacement with a bioprosthesis 2. 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 Status post prophylactic AtriClip ligation of the left atrial appendage 4. Acute expected blood loss anemia with thrombocytopenia 5. Postoperative paroxysmal atrial fibrillation HISTORY OF PRESENT ILLNESS: 76 yo female with known and worsening exertional dyspnea found to have progressive valvular stenosis into the severe range as well as onset of significant AI. Associated with mild MR, moderate TR, and a 5 cm ascending aorta tapering to 3.2 cm prior to arch vessel takeoff. No LVE, LVSD, LVDD, obstructive CAD, PHTN, documented arrhythmia, or overt CHF. Admitted for elective AVR with resection of the ascending aorta. PERTINENT PAST MEDICAL HISTORY: mild reactive airways disease, dyslipidemia, s/p successful SVT ablation in 2016 , s/p remote thyroidectomy MEDICATIONS ON ADMISSION: ASA 81 mg daily, MVI daily, Vit B complex daily, herbal supplement daily, Fosamax 70 mg once weekly ALLERGIES/SENSITIVITIES: NKDA CONSULTANTS: none PROCEDURES/IMAGIN/3 (Jaron): Median sternotomy. Aortic valve replacement with a 21mm Balderrama Magna bovine pericardial bioprosthesis. Ascending aortic replacement with a 22 mm hemashield graft. Prophylactic AtriClip ligation of the left atrial appendage. 01/30 (Rohini): Transthoracic echocardiogram: Nl bioprosthetic valve fx (MG 9). Nl BiV size and systolic fx. LVEF 67%. Mild biatrial dilatation. Mild MR. Mild TR. ABBREVIATED HOSPITAL COURSE BY ACTIVE PROBLEM LIST: 1. Sx severe /AI w dilated asc ao - Addressed with tissue AVR and asc ao replacement. Nonspecific loss of elastic fibers demonstrated on path of aortic specimen. Extubated in the OR. Hemodynamically stable early postop course without prolonged vasoactive support. Active diuresis of modest volume overload initiated. Renal fx stable throughout. Antithrombotic prophylaxis with ASA and Eliquis. 2. Postoperative PAF - With controlled ventricular response on low dose BB. Amiodarone administered per protocol with subsequent episodes of pauses/ bradycardia requiring temporary backup pacing (VVI 50). EP cards consulted. BB discontinued and transitioned to low dose Amio. Thromboprophylaxis with low- dose Eliquis for [id number] score of 3. Intermittent SR without further bradycardia restored. Outpt monitoring with Holter arranged. 3. Acute expected blood loss anemia with thrombocytopenia - Stable. No need for blood or blood products. Platelet rebound noted. DISCHARGE CLINICAL INFORMATION: Sternum grossly stable. Sternotomy CDI, sutured, +Dermabond. HR AF 80s. SBP 110s-120s. SpO2 97% RA. Wt 4.5 kg above admission at 49.8 kilos. Hgb 10.1, HCT 30.9, Plt 99, Na 137, K 4.3, Cr 0.6 DISCHARGE MEDICATIONS: As on admission with the following NEW prescriptions: 1. Lasix 40 mg daily until back to baseline weight and no swelling. 2. KlorCon 10 mEQ daily with lasix. 3. Eliquis 2.5 mg BID. 4. Amiodarone 200 mg daily. 5. Ultram 50 mg one-half to 1 tab q 6-8 hrs prn breakthrough incisional discomfort. FOLLOW UP APPOINTMENTS: 1. CV surgery: with Dr Salmeron at [facility] on 02/04 at. 2. EP Cardiology: with Dr Blevins at [facility] as directed for placement of Holter monitor and review of results. 3. Primary Cardiology: with Dr David at [facility] in 6-8 weeks or as directed. FOLLOW UP TESTING: CXR prior to surgical appointment.
[2017-02-01] MEDS ORDERED: ALENDRONATE SODIUM 70 MG TAB PO SCH (07:00)
== END 2017-01-31 11:53 | disposition home or self-care (01) | DRG 220 ==
LOC: F2N 05:49 → F2W 01-28 12:27
PROVIDERS: ADMIT Thoracic Surgery (Cardiothoracic Vascular Surgery); ATTEND Thoracic Surgery (Cardiothoracic Vascular Surgery)
PROC: 04R00JZ Replacement of Abdominal Aorta with Synthetic Substitute, Open Approach (ICD-10-PCS; principal; 2017-01-27 07:15)
PROC: 5A1221Z Performance of Cardiac Output, Continuous (ICD-10-PCS; principal; 2017-01-27 07:15)
PROC: 02L70CK Occlusion of Left Atrial Appendage with Extraluminal Device, Open Approach (ICD-10-PCS; principal; 2017-01-27 07:15)
PROC: 02RF08Z Replacement of Aortic Valve with Zooplastic Tissue, Open Approach (ICD-10-PCS; principal; 2017-01-27 07:15)
DX: I35.2 Nonrheumatic aortic (valve) stenosis with insufficiency (principal); I71.4 Abdominal aortic aneurysm, without rupture; D62 Acute posthemorrhagic anemia; I48.91 Unspecified atrial fibrillation; I47.1 Supraventricular tachycardia; K21.9 Gastro-esophageal reflux disease without esophagitis; E78.5 Hyperlipidemia, unspecified; E05.90 Thyrotoxicosis, unspecified without thyrotoxic crisis or storm
CPT/HCPCS: 82947-QW; 97116-GP; 97161-GP; 97166-GO; 97530-GP; 97535-GO; C1768; G8978-GP-CJ; G8979-GP-CI; G8987-GO-CI; G8987-GO-CK; G8988-GO-CI; G8989-GO-CI; J0153; J0171; J0282; J0690; J1265; J1644; J1815; J1885; J1940; J2001; J2150; J2250; J2260; J2370; J2405; J2704; J2720; J2765; J2930; J3010; J7060; P9041

== ENCOUNTER → 2017-02-04 | Outpatient (CLI) | payer OTHER | LOC: BHFA 13:00 | PROVIDERS: ATTEND Internal Medicine Cardiovascular Disease | DX: I48.91 Unspecified atrial fibrillation (principal) ==

== ENCOUNTER → 2017-02-04 | Outpatient (CLI) | payer OTHER | LOC: FIMAGING 10:31 | PROVIDERS: ATTEND Physician Assistant Surgical | DX: J90 Pleural effusion, not elsewhere classified (principal); J98.11 Atelectasis; Z95.2 Presence of prosthetic heart valve; Z98.890 Other specified postprocedural states ==

== ENCOUNTER → 2017-02-14 | Outpatient (CLI) | payer OTHER | LOC: BHFA 11:30 | PROVIDERS: ATTEND Internal Medicine Cardiovascular Disease | DX: I48.91 Unspecified atrial fibrillation (principal); R00.2 Palpitations ==

== ENCOUNTER → 2017-02-18 | Outpatient (CLI) | payer OTHER | LOC: FIMAGING 10:12 | PROVIDERS: ATTEND Thoracic Surgery (Cardiothoracic Vascular Surgery) | DX: J90 Pleural effusion, not elsewhere classified (principal); Z95.2 Presence of prosthetic heart valve ==

== ENCOUNTER → 2017-04-23 | Outpatient (CLI) | payer OTHER | LOC: BHFA 11:00 | PROVIDERS: ATTEND Internal Medicine Cardiovascular Disease | DX: I48.91 Unspecified atrial fibrillation (principal) ==

== ENCOUNTER → 2017-10-21 | Outpatient (CLI) | payer OTHER | LOC: BRMIMAGING 13:02 | PROVIDERS: ATTEND Internal Medicine | DX: Z12.31 Encounter for screening mammogram for malignant neoplasm of breast (principal) ==

== ENCOUNTER → 2018-02-02 | Outpatient (CLI) | payer OTHER | LOC: BHLMT 11:30 | PROVIDERS: ATTEND Internal Medicine Cardiovascular Disease | DX: I48.91 Unspecified atrial fibrillation (principal); I35.9 Nonrheumatic aortic valve disorder, unspecified | CPT/HCPCS: 93306-PO ==

== ENCOUNTER → 2018-10-22 | Outpatient (CLI) | payer OTHER | LOC: BRMIMAGING 13:16 | PROVIDERS: ATTEND Internal Medicine | DX: Z12.31 Encounter for screening mammogram for malignant neoplasm of breast (principal) ==